=== PATIENT | female | born 1950 | race Caucasian/White ===

== ENCOUNTER → 2017-02-11 | Outpatient (CLI) | payer MEDICARE, BC, OTHER ==
--- NOTE | 2017-02-11 11:12 | REPMRS ---
Patient History The patient states she had a clinical breast exam in January 2017. Patient is postmenopausal. Took hormonal contraceptives for 2 years. Digital Mammo Screening Bilat: February 11, 2017 - Exam #: [id number] Bilateral CC and MLO view(s) were taken. Technologist: Elizabeth Armendariz, Technologist Prior study comparison: April 21, 2015, bilateral digital mammo screening bilat performed at [facility]. May 01, 2014, bilateral bilat screen digital mammo, performed at [facility] ([facility]). December 06, 2012, bilateral bilat screen digital mammo, performed at [facility] ([facility]). FINDINGS: There are scattered fibroglandular densities. There has been no change in the appearance of the mammogram from the prior studies. There is a mild amount of scattered fibroglandular density which is fairly symmetric. There is no interval development of dominant mass, architectural distortion, or clustered microcalcification suggestive of malignancy. ASSESSMENT: BI-RADS/ACR category 1 mammogram. Negative. Recommendation Routine screening mammogram in 1 year (for women over age 40). This mammogram was interpreted with the aid of an FDA-approved computer-aided dectection system. Electronically Signed By: Maynor Bower MD 02/11/17 [id number]
== END ==
LOC: M RAD 09:24
PROVIDERS: ATTEND Internal Medicine
DX: Z12.31 Encounter for screening mammogram for malignant neoplasm of breast (principal); Z78.0 Asymptomatic menopausal state; Z92.0 Personal history of contraception

== ENCOUNTER → 2017-02-11 | Outpatient (CLI) | payer MEDICARE, BC ==
--- NOTE | 2017-02-14 10:11 | DEXA ---
AP SPINE L1 - L4 1.243 0.4 2.0 LT FEMUR TOTAL 1.109 0.8 2.1 RT FEMUR TOTAL 1.086 0.6 2.0 TOTAL BODY TOTAL OTHER DUAL FEMUR FRAX* ASSESSMENT Risk factors: None. 10 year probability of fracture Major osteoporotic fracture 7.2 % Hip fracture 0.3 % COMMENTS: Normal bone densitometry of the spine and hips. The density of the spine has decreased 6.9% since the initial exam on 2003. The spine density has decreased 2.8% since the most recent exam on 05/03/2008. The density of the left hip has decreased 10.6% since the initial exam on 2003. The density of the left hip has decreased 2.5% since the most recent exam on . The density of the right hip has decreased 9.9% since the initial exam on 2003. The density of the right hip has decreased 5.3% since the most recent exam on . FOLLOW-UP: Recommendation for the next bone density exam: 2 years. NELLIE
== END ==
LOC: M WHC 10:46
PROVIDERS: ATTEND Internal Medicine
DX: Z12.31 Encounter for screening mammogram for malignant neoplasm of breast (principal); M85.9 Disorder of bone density and structure, unspecified; Z78.0 Asymptomatic menopausal state; Z92.0 Personal history of contraception
CPT/HCPCS: 77080; G0202

== ENCOUNTER → 2017-04-20 | Outpatient (REF) | payer MEDICARE, BC | LOC: M LAB REF 12:22 | PROVIDERS: ATTEND Internal Medicine | DX: Z01.89 Encounter for other specified special examinations (principal) ==